=== PATIENT | male | born 1990 | race Caucasian/White ===

== ENCOUNTER 2025-03-29 05:56 | Emergency (ER) | payer BC, SELFPAY ==
[2025-03-29 06:12] VITALS: BP 135/72
[2025-03-29 06:22] VITALS: BMI 24.4
--- NOTE | 2025-03-29 07:42 | ED.GENMED ---
History of Present Illness
General
Chief Complaint: Musculo-Skeletal Complaint
Source: patient
Exam Limitations: none
Time Seen by Provider: 03/29/25 07:11
Nursing documentation reviewed up to this point in time: agreed with
History of Present Illness
History of Present Illness:
see MDM
Past History
Past History
ED Past Medical History: None
ED Past Surgical History: None
Social History
Tobacco: Non-smoker
Review of Systems
Review of Systems
Allergies reviewed?: Yes
All Other Systems: Not applicable
Phy Exam
Physical Exam
Physical Exam:
see MDM
Course
Orders/Labs/Results
Orders:
Orders
03/29/25 06:26
Foot, Right 3 View [CR Foot - Right Min 3 Views] Urgent
Comment:
Reason For Exam: pain
03/29/25 07:45
Ibuprofen [Motrin] 600 mg PO NOW STA
Vital Signs
Initial and Last Documented VS:
Initial Vital Signs
Temp Pulse Resp BP Pulse Ox
36.7 C 73 16 135/72 98
03/29/25 06:12 03/29/25 06:12 03/29/25 06:12 03/29/25 06:12 03/29/25 06:12
Last Documented Vital Signs
Temp Pulse Resp BP Pulse Ox
36.7 C 73 16 135/72 98
03/29/25 06:12 03/29/25 06:12 03/29/25 06:12 03/29/25 06:12 03/29/25 07:44
MDM/Problems Addressed
Differential Diagnosis Includes:
see MDM
MDM/Problems Addressed:
Note:
CHIEF COMPLAINT(S)
Pain in the left great toe.
HISTORY OF PRESENT ILLNESS
The patient is a 34-year-old male presenting with pain in the right 2nd toe and distal foot. The patient reports waking up with the toe pain but denies any trauma, bumping, or specific activity that could have led to the pain. The patient mentions
experiencing discomfort during long drives, more than an hour, noting a similar sensation last week.
The patient has not taken any medication for the pain.
pt did get newer shoes that he has been wearing.
pt has not had any redness, warmth, skin changes, fever, chills, trauma, numbness.
he has never been seen for this before
no chronic conditions
SOCIAL DETERMINANTS AFFECTING HEALTH
Although not explicitly detailed in the conversation, the potential factor of prolonged driving (possibly occupational or situational) might contribute to the patients condition due to physical stress on the feet.
REVIEW OF SYSTEMS
- Musculoskeletal: Reports pain in the [id number] toe, associated with discomfort during prolonged driving.
- Skin: Normal appearance of skin on the toe, absence of redness or swelling.
- Neurological: Potential Mortons neuroma considered due to reported symptoms of pain.
PHYSICAL EXAM
GENERAL: Alert , in no apparent distress, comfortable at rest
HEAD: NCAT
CV: 2+ DP PULSES B/L
NEUROLOGICAL: Alert and oriented, no focal neuro deficits, , 5/5 strength, sensation intact, ambulation very slight limp
SKIN: Warm and dry, no redness
MUSCULOSKELETAL: possibly mild swelling to distal foot right but not significant, no swelling to the 2nd toe
pt has tenderness at the base of the 2nd toe, with pain worse with dorsi and plantar flexion, feeling pain at the MTP joint region
he also has point tenderness to distal foot plantar aspect
? golden's neuroma?
PSYCH: Normal and appropriate interaction.
Nursing notes reviewed and vital signs reviewed.
PLAN
The plan includes NSAIDs such as ibuprofen to be taken three times a day for five days, rest, icing of the affected toe, avoidance of exacerbating activities, and considering toe splinting. A referral to a raw silk grader will be provided for specialist
care if the symptoms do not improve.
DIFFERENTIAL DIAGNOSIS
The Differential Diagnosis includes, in no particular order and is not limited to:
1. Tendonitis
2. Mortons neuroma
3. Gout
4. Degenerative joint disease (osteoarthritis)
5. Rheumatoid arthritis
6. Bursitis
7. Stress fracture
8. Infectious arthritis
9. Neuropathy
10. Vascular insufficiency
34 y/o M
no pmh
says he did recently get new shoes
and drove long distance last week
but then yesterday woke up with pain at the base of his R second toe and plantar foot
no significatn swelling
able to walk on his heel
nothing for pain
never had this before
has hammer toes chronically
normal inspection of the foot otherwise
no redness
tenderness to base of 2nd toe and plantar foot in that distal metatarsal region
no suspected FB
normal pulse
pain with 2nd toe dorsiflexion
? mortons' neuroma? pt doesn't have numbness
xray indep reviewed, neg for fx
has some arthritis/hammer toes
nsaids
rice
podiatry
*Pulse Oximetry
SaO2: 98
Oxygen Mode of Delivery: Room air
Patient hypoxic: no (98)
*Critical Care Note
Total Time (30-74mins, 75-104mins- exclusive of procedures): Not Applicable
ED Attending Note
-
Portions of this chart may have been created with voice recognition software.� Occasional wrong word or��sound alike� substitutions may have occurred due to the inherent limitations of voice recognition software.
Discharge Plan
Departure
Patient Disposition: Home (Routine Discharge)
Date of Disposition: 03/29/25
Time of Disposition: 08:00
Patient with high blood pressure during this ER visit?: No
Condition: Fair
Covid-19: Not Applicable
Discharge Problem:
Acute pain of right foot
Instructions: Muscle and Bone Pain (DC)
Prescriptions:
New
ibuprofen 600 mg tablet
600 mg PO Q8H PRN (Reason: Pain) Qty: 15 0RF
Referrals:
Jose Ragland DPM [Active, Podiatry] - Follow up in 5-7 days
Activity Restrictions/Additional Instructions:
Your foot pain could be due to tendinitis or even possibly a Golden's neuroma. Try ibuprofen 600 mg 3 times a day with food for the next 3 to 5 days. Try icing and elevating and staying off of it for couple days. Make sure to have comfortable
shoes.
If you are still having pain after this time. You should follow-up with the raw silk grader. You can call make an appointment. Return for redness, significant swelling, fever, inability to walk on it or any concerns
Interventions
Interventions:
*Risk Screen - Suicide Last Done: 03/29/25 06:12
*General Assessment Last Done: 03/29/25 06:20
*Neglect/Abuse Screening Last Done: 03/29/25 06:12
*ED COVID-19 Vaccine History Last Done: 03/29/25 06:12
*ED Influenza Vaccine History Last Done: 03/29/25 06:12
[facility] Risk Assessment Tool Last Done: 03/29/25 06:21
ED-Musculoskeletal Assessment Last Done: 03/29/25 06:19
Discharge Date and Time
Print Language: MONGOLIAN
[2025-03-29] MEDS: MOTRIN 600 MG PO (07:52)
== END 2025-03-29 08:13 | disposition home or self-care (01) ==
LOC: EMR 05:56
PROVIDERS: EMERGENCY PHYSICIAN Emergency Medicine; FAMILY PHYSICIAN Family Medicine
DX: M79.671 Pain in right foot (principal)
CPT/HCPCS: 99283; 73630